=== PATIENT | male | born 1965 | race Asian ===

== ENCOUNTER 2016-11-05 20:39 | Emergency (ER) | payer BC ==
[~2016-11-05] VITALS: Ht 167.6 cm; Wt 64.4 kg
[2016-11-05 20:45] VITALS: BP_SYST 125
[2016-11-06] MEDS ORDERED: NACL 0.9% 1,000 ML IV ONE (00:15)
[2016-11-06 01:00] VITALS: BP_SYST 113
== END 2016-11-06 01:00 | disposition home or self-care (01) ==
LOC: SED 20:39
DX: S12.300A Unspecified displaced fracture of fourth cervical vertebra, initial encounter for closed fracture (principal); S09.90XA Unspecified injury of head, initial encounter; V87.8XXA Person injured in other specified noncollision transport accidents involving motor vehicle (traffic), initial encounter; Y93.89 Activity, other specified; Y99.8 Other external cause status; Y92.89 Other specified places as the place of occurrence of the external cause
CPT/HCPCS: 70450; 72125; 96360; 99284; J7030